=== PATIENT | male | born 1965 | race Caucasian/White ===

== ENCOUNTER 2021-08-01 16:05 | Outpatient (CLI) | payer OTHER, SELFPAY ==
--- NOTE | 2021-08-01 16:19 | XRR_ITS ---
PROCEDURE INFORMATION: Exam: XR Chest Exam date and time: 08/01/2021 4:19 PM Age: 56 years old Clinical indication: Pleuordynia; Patient HX: PT states the Dr is checking for pleurisy, pain on RT side of abdomen RT under the breast that wraps to the back. Smoking--y; Additional info: Pleurodynia, chronic sinusitis TECHNIQUE: Imaging protocol: XR of the chest. Views: 2 views. COMPARISON: CT abdomen pelvis w con* [id number] 10/30/2018 3:24 PM FINDINGS: Lungs: No consolidation. Pleural spaces: No pleural effusion. No pneumothorax. Heart/Mediastinum: No cardiomegaly. Bones/joints: Visualized osseous structures are intact. XR/XR chest 2V* [id number] IMPRESSION: No acute findings.
== END 2021-08-01 16:06 | disposition home or self-care (01) ==
LOC: RAD 16:13
PROVIDERS: PCP Nurse Practitioner Family; Visit Provider Nurse Practitioner Family
DX: R07.81 Pleurodynia (principal); J32.9 Chronic sinusitis, unspecified
CPT/HCPCS: 71046

== ENCOUNTER 2021-09-19 16:02 | Emergency (ER) | payer OTHER, SELFPAY ==
[2021-09-19 16:09] VITALS: BP 172/108; PULSE 77; RESP 16; TEMP 36.8; O2SAT 97; BMI 47.5
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
--- NOTE | 2021-09-19 16:27 | CT_ITS ---
WS: [email or web address] CT head wo con* [id number] REASON FOR EXAM: fall, head injury IV CONTRAST ADMINISTERED: Noncontrast TOTAL EXAM DLP: 997.[address] scans at [facility] use at least one of these dose optimization techniques: automat ed exposure control; mA and/or kV adjustment per patient size (includes targeted exams where dose is matched to clinical indication); or iterative reconstruction. FINDINGS: No midline shift or other significant mass effect. No findings of intracranial hemorrhage and no extra-axial fluid collection. No acute brain parenchymal abnormality. Benign bilateral basal ganglia calcifications. Normal ventricles and other CSF spaces. Base of the skull, zygomatic arches, and bony orbits are intact. Bony calvarium is intact. CT/CT head wo con* [id number] IMPRESSION: No acute abnormality.
--- NOTE | 2021-09-19 16:27 | CTR_ITS ---
PROCEDURE INFORMATION: Exam: CT Cervical Spine Without Contrast Exam date and time: 09/19/2021 4:27 PM Age: 56 years old Clinical indication: Injury or trauma; Fall; Blunt trauma; Additional info: Fall, head injury, neck pain TECHNIQUE: Imaging protocol: Computed tomography images of the cervical spine without contrast. Radiation optimization: All CT scans at this facility use at least one of these dose optimization techniques: automated exposure control; mA and/or kV adjustment per patient size (includes targeted exams where dose is matched to clinical indication); or iterative reconstruction. COMPARISON: CT head wo con* [id number] 09/19/2021 4:40 PM RADIATION DOSE METRICS: Total DLP (mGy-cm): 1037.18 FINDINGS: Bones/joints: No acute fracture. Normal alignment. Discs/Spinal canal/Neural foramina: No significant disc protrusion. No severe spinal canal stenosis. No significant neural foraminal narrowing. Lungs: Lung apices are normal. Soft tissues: Unremarkable. CT/CT cervical spin wo con* [id number] IMPRESSION: No acute findings.
[2021-09-19 16:31] VITALS: BP 182/113; PULSE 75; RESP 18; O2SAT 96
[2021-09-19 17:46] VITALS: BP 176/100; PULSE 72; RESP 18; O2SAT 97
== END 2021-09-19 17:47 | disposition home or self-care (01) ==
PROVIDERS: Emergency Provider Emergency Medicine; PCP Nurse Practitioner Family
DX: S09.8XXA Other specified injuries of head, initial encounter (principal); F17.210 Nicotine dependence, cigarettes, uncomplicated; W01.0XXA Fall on same level from slipping, tripping and stumbling without subsequent striking against object, initial encounter
CPT/HCPCS: 70450; 72125; 99282

== ENCOUNTER 2022-10-29 08:22 | Day surgery (SDC) | payer OTHER, SELFPAY ==
[2022-10-27 12:35] VITALS: BMI 48.8
[2022-10-29] MEDS: sodium chloride 0.9% 1,000 ML 30 ML IV (08:50)
[2022-10-29 08:51] VITALS: BP 143/99; PULSE 88; RESP 18; TEMP 36.1; O2SAT 94
--- NOTE | 2022-10-29 09:36 | ANES.PREANE2 ---
Pre-Anesthetic Assessment Height/Weight: Height 1.83 m Weight 163.293 kg Temp Pulse Resp BP Pulse Ox O2 Del Method 97.0 F L 88 18 143/99 94 10/29/22 08:51 10/29/22 08:51 10/29/22 08:51 10/29/22 08:51 10/29/22 08:51 10/29/22 08:51 Preop Diagnosis: screening Operation Date: 10/29/22 10:00 Proposed Procedures p [id number] colon Z12.11(Not Applicable) - Jose Calles DO Familial anesthetic complications: None Was Beta Dante taken within 24 hours: N/A Was Clonidine taken within 24 hours: N/A Last intake: Intake Last Liquid Date 10/28/22 Last Liquid Time 22:00 Last Solid Date 10/27/22 Last Solid Time 19:00 Social No alcohol and No tobacco Exam alert, oriented x 3, clear to auscultation bilaterally and regular rate & rhythm Airway Submandibular: within normal limits Cervical ROM: within normal limits Mallampati: Class II Dentition: full History/ROS No significant history except as noted Pulmonary None reported CV/HEM None reported None reported Hepatic None reported GI None reported Metabolic Morbid Obesity [facility] [place] None reported Neuropsych None reported Anesthetic Plan ASA status: 3 Anesthesia: Anesthesia Evaluation and MAC Risk of > 500 ml blood loss (7ml/kg in children): No Medications/Allergies Home Medications Medication Instructions Recorded Confirmed Last Taken Type No Known Home Medications 10/27/22 10/29/22 Unknown History Allergies Allergy/AdvReac Type Severity Reaction Status Date / Time No Known Allergies Allergy Verified 10/29/22 08:50 Current Medications Generic Name Dose Route Start Last Admin Trade Name Bcq PRN Reason Stop Dose Admin Sodium Chloride 1,000 mls @ 30 mls/hr 10/29/22 08:30 10/29/22 08:50 Sodium Chloride 0.9% IV 10/30/22 08:29 30 mls/hr .Q24H SERGIO Administration PFSH Anesthesia Medical History No significant past medical history Surgical History History of throat surgery uvula, adenoids and tonsils Hx of colonoscopy 7 yrs ago Hx of knee surgery right Hx of shoulder surgery right No significant past surgical history Social History Smoking and tobacco status: current some day smoker Alcohol intake: current Alcohol intake frequency: holidays/special occasions only Data Anesthesia Cardiac Studies: No Data to Display
--- NOTE | 2022-10-29 09:53 | W.PM.OPSUD ---
Surgery/Procedure H&P Update DATE OF PROCEDURE: October 29, 2022 DATE H&P PERFORMED: 10/07/22 H&P UPDATE INFORMATION: I have reviewed H&P completed within last 30 days, I have examined patient prior to procedure and No changes to prior documentation PREOP DIAGNOSIS: screening PLANNED PROCEDURE: Operation Date: 10/29/22 10:00 Proposed Procedures p [id number] colon Z12.11(Not Applicable) - Jose Calles DO
[2022-10-29 10:24] VITALS: BP 170/85; PULSE 93; RESP 15; TEMP 36.4; O2SAT 96
[2022-10-29 10:30] VITALS: BP 167/107; PULSE 92; RESP 18; O2SAT 96
--- NOTE | 2022-10-29 15:25 | ANE.PACU2 ---
Inpatient post-anesthesia follow up: Airway intact: Yes Vital signs: Temperature 97.5 F Pulse Rate 92 Respiratory Rate 18 Blood Pressure 167/107 Pulse Oximetry 96 Oxygen Delivery Me thod Room Air Oxygen Flow Rate Fraction of Inspir ed Oxygen Hydration adequate: Yes Nausea and vomiting: No Pain level: 2 Mental status: Baseline
== END 2022-10-29 10:48 | disposition home or self-care (01) ==
PROVIDERS: PCP Nurse Practitioner Family; Visit Provider Surgery
PROC: 0DJD8ZZ Inspection of Lower Intestinal Tract, Via Natural or Artificial Opening Endoscopic (ICD-10-PCS; CPT 45378; principal; 2022-10-29 10:00)
DX: Z12.11 Encounter for screening for malignant neoplasm of colon (principal); F17.210 Nicotine dependence, cigarettes, uncomplicated
CPT/HCPCS: 45378; J2704; J7030

== ENCOUNTER 2022-11-26 15:52 | Outpatient (CLI) | payer OTHER, SELFPAY ==
--- NOTE | 2022-11-26 16:38 | XR_ITS ---
WS: [email or web address] EXAMINATION: XR cervical spine 3V* [id number] Cervical spine 3 views REASON FOR EXAM: Z79.899 - Other detention (current) drug therapy COMPARISON: None available. FINDINGS: There is no sign of acute fracture or subluxation. There is prominent osteophytes from C4 through C7. Prominent posterior osteophytes at C4-5 and C5-6 may be narrowing the spinal canal. Mild disc narrow ing at C4-5 and C5-6 with marked narrowing at C6-7. IMPRESSION: Intervertebral degenerative disc change as noted above.
--- NOTE | 2022-11-26 16:38 | XR_ITS ---
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 ORDER DATE: 11/26/2022 4:39 PM FINDINGS: There is no sign of any acute osseous or articular abnormality. No evidence of sacral sclerosis or sa croiliitis There are no specific soft tissue abnormalities. XR/XR sacroiliac jts m 3V [id number] IMPRESSION: Normal SI joints.
--- NOTE | 2022-11-26 16:38 | XR_ITS ---
WS: [email or web address] EXAMINATION: XR knee LT 3V* [id number] REASON FOR EXAM: Z79.899 - Other [facility] (current) drug therapy COMPARISON: None available. ORDER DATE: 11/26/2022 4:39 PM FINDINGS: There is no sign of any acute osseous or articular abnormality. There are no specific soft tissue abn ormalities. XR/XR knee LT 3V* [id number] IMPRESSION: No acute change
--- NOTE | 2022-11-26 16:38 | XR_ITS ---
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 ORDER DATE: 11/26/2022 4:39 PM FINDINGS: Generalized degenerative spinal changes are seen including moderate degenerative endplate changes and marginal osteophytes. There is prominent narrowing and vacuum disc degenerative change at the L5-S1 level. There is atherosclerotic aortic change. There is no evidence of acute compression deformities or spondylolisthesis. XR/XR lumbar spine 2-3V* [id number] IMPRESSION: MODERATE DEGENERATIVE SPINE CHANGE AND SPONDYLOSIS.
--- NOTE | 2022-11-26 16:38 | XR_ITS ---
WS: [email or web address] EXAMINATION: XR knee RT 3V* [id number] REASON FOR EXAM: Z79.899 - Other [facility] (current) drug therapy COMPARISON: 04/06/2015 ORDER DATE: 11/26/2022 4:39 PM FINDINGS: Unchanged narrowing of the lateral joint compartment of the knee with superimposed loose bodies or os teochondroma in the posterior joint compartment as before. Lateral femoral condyle osteophyte. Additional medial femoral and tibial condyle osteophytes and mild prominence of the tibial spines. Small osteophyte posterior superior corner of the patella. No fractures seen. No obvious soft tissue swelling or joint effusion. XR/XR knee RT 3V* [id number] Impression:: Osteoarthritic changes, findings in the lateral compartment unchan ged.
[2022-11-26 17:11] LABS: Basophils # 0.1 10^3/uL (0.0-0.1); Basophils % 1.2 %; Eosinophils # 0.3 10^3/uL (0.0-0.8); Eosinophils % 2.9 %; Hematocrit 44.8 % (42.0-52.0); Hemoglobin 14.9 g/dL (11.7-16.6); Lymphocytes # 2.8 10^3/uL (0.8-4.8); Lymphocytes % 30.5 %; Mean Corpuscular HGB Conc 33.3 g/dL (30.0-36.0); Mean Corpuscular Volume 90.1 fl (80-94); Monocytes # 0.8 10^3/uL (0.2-0.9); Neutrophils % 56.1 %; Nucleated Red Blood Cells % 0 %; Platelet Count 196 10^3/cmm (130-400); Red Blood Count 4.97 10^6/uL (4.1-5.3); Red Cell Distribution Width 13.5 % (12.1-15.1); White Blood Count 9.1 10^3/uL (4.0-10.0)
[2022-11-26 17:57] LABS: Erythrocyte Sedimentation Rate 26 mm/hr (0-10)
[2022-11-26 18:00] LABS: Alanine Aminotransferase 34 U/L (0-41); Albumin Level 3.9 g/dL (3.5-5.2); Alkaline Phosphatase 92 U/L (40-130); Aspartate Amino Transferase 34 U/L (0-40); C Reactive Protein 8.1 mg/L (0.0-4.9); Globulin 2.9 g/dL (1.3-4.6); Glomerular Filtration Rate 170.2 mL/min (90-130); Total Bilirubin 0.2 mg/dL (0.15-1.2); Total Protein 6.8 g/dL (6.6-8.7)
[2022-11-26 21:36] LABS: Hepatitis C Virus Antibody Non-Reactive (Nonreactive)
[2022-11-26 21:42] LABS: Hepatitis B Core AB, Total Non-Reactive (Nonreactive); Hepatitis B Surface Antigen Non-Reactive (Nonreactive)
[2022-11-28 12:55] LABS: Quantiferon Mitogen 9.75 IU/mL; Quantiferon Nil 0.02 IU/mL; Quantiferon TB Gold NEGATIVE (NEGATIVE)
[2022-11-28 13:34] LABS: Cyclic Citrullinated Peptide <16 UNITS
[2022-11-28 23:38] LABS: HLA-B27 NEGATIVE (NEGATIVE)
== END 2022-11-26 15:53 | disposition home or self-care (01) ==
PROVIDERS: PCP Nurse Practitioner Family; Visit Provider Internal Medicine Rheumatology
DX: Z11.59 Encounter for screening for other viral diseases (principal); M19.90 Unspecified osteoarthritis, unspecified site; Z79.899 Other long term (current) drug therapy; M45.6 Ankylosing spondylitis lumbar region; M47.816 Spondylosis without myelopathy or radiculopathy, lumbar region
CPT/HCPCS: 72040; 72100; 72202; 73562; 80076; 82565; 85025; 85651; 86140; 86200; 86431; 86480; 86704; 86803; 86812; 87340